=== PATIENT | female | born 1960 | race African-American/Black ===

== ENCOUNTER 2018-08-29 12:15 | Emergency (ER) | payer MEDICAID, OTHER ==
[~2018-08-29] VITALS: Ht 157.5 cm; Wt 118.0 kg
[~2018-08-29 12:15] MED LIST: ALLO300T74; BENAZEPRIL; GABAPENTIN; OMEP40CA; S350
[2018-08-29 12:42] VITALS: BP 134/67
== END 2018-08-29 18:15 | disposition left against medical advice (07) ==
LOC: ER 12:15
DX: R06.02 Shortness of breath (principal); Z53.21 Procedure and treatment not carried out due to patient leaving prior to being seen by health care provider